=== PATIENT | female | born 1975 | race African-American/Black ===

== ENCOUNTER 2019-04-09 08:59 | Emergency (ER) | payer SELFPAY ==
[~2019-04-09] VITALS: Ht 167.6 cm; Wt 81.2 kg
[2019-04-09 09:14] VITALS: BP 157/93
[2019-04-09] MEDS ORDERED: LIDOCAINE 1% Multi-Dose 20 ML VIAL. INJ ONE (09:15)
[2019-04-09] MEDS ORDERED: CEPH-264 PO (09:20)
--- NOTE | 2019-04-09 09:20 | PHYS DOC ---
Adult General Chief Complaint Chief Complaint: VAGINAL PROBLEM HPI HPI Patient is a 43 year old female who presents with left lower omalley area but STATES that started on Friday. Patient states started out as small pimples-sized and is no ache or in more painful. Patient rates her burning and throbbing pain an 8 out of 10. Review of Systems Review of Systems Constitutional: Denies fever or chills [] Eyes: Denies change in visual acuity, redness, or eye pain [] HENT: Denies nasal congestion or sore throat [] Respiratory: Denies cough or shortness of breath [] Cardiovascular: No additional information not addressed in HPI [] GI: Denies abdominal pain, nausea, vomiting, bloody stools or diarrhea [] : Denies dysuria or hematuria [] Musculoskeletal: Denies back pain or joint pain [] Integument: abscess to lower buttock. Denies rash or skin lesions [] Neurologic: Denies headache, focal weakness or sensory changes [] Endocrine: Denies polyuria or polydipsia [] All other systems were reviewed and found to be within normal limits, except as documented in this note. Current Medications Current Medications Current Medications Medications (Trade) Dose Ordered Sig/Miller Start Time Stop Time Status Last Admin Dose Admin Lidocaine HCl (Lidocaine 1% 20ml Vial) 20 ml 1X ONCE 04/09/19 09:15 04/09/19 09:16 DC Allergies Allergies Allergies Coded Allergies Type Severity Reaction Last Updated Verified No Known Drug Allergies 04/09/19 No Physical Exam Physical Exam Constitutional: Well developed, well nourished, no acute distress, non-toxic appearance. [] HENT: Normocephalic, atraumatic, bilateral external ears normal, oropharynx moist, no oral exudates, nose normal. [] Eyes: PERRLA, EOMI, conjunctiva normal, no discharge. [] Neck: Normal range of motion, no tenderness, supple, no stridor. [] Cardiovascular:Heart rate regular rhythm, no murmur [] Lungs & Thorax: Bilateral breath sounds clear to auscultation [] Abdomen: Bowel sounds normal, soft, no tenderness, no masses, no pulsatile masses. [] Skin: Left lower inner buttock abscess. Red fluctuate center to abscess. Warm, dry, no erythema, no rash. [] Back: No tenderness, no CVA tenderness. [] Extremities: No tenderness, no cyanosis, no clubbing, ROM intact, no edema. [] Neurologic: Alert and oriented X 3, normal motor function, normal sensory function, no focal deficits noted. [] Psychologic: Affect normal, judgement normal, mood normal. [] Current Patient Data Vital Signs Vital Signs Date Time Temp Pulse Resp B/P (MAP) Pulse Ox O2 Delivery O2 Flow Rate FiO2 04/09/19 09:14 98.2 93 18 157/93 (114) 98 Room Air 98.2 EKG EKG [] Radiology/Procedures Radiology/Procedures [] Course & Med Decision Making Course & Med Decision Making Patient is a 43 year old female who presents with left lower omalley area but STATES that started on Friday. Patient states started out as small pimples-sized and is no ache or in more painful. Patient rates her burning and throbbing pain an 8 out of 10. Alert and oriented. Afebrile. Vital signs within normal limits. Patient has a dollar coin-sized abscess with a fluctuant center to left lower inner buttock. There is no associated cellulitis around the abscess. A small amount of thick purulent fluid is drained. Patient is put on Keflex and to follow up with primary care in 48 hours or return here for wound recheck. Patient states she has a appointment with her Primary care scheduled fro April 12 and will follow up with her doctor. Patient is told she must return sooner if she begin running a fever. Abscess Incision and Drainage with irrigation by me: Location: Left lower inner buttock Anesthesia: Local 1% Lidocaine Technique: Irrigated. Disrupted loculations w/ instrumentation Packing: None Complications: Neurovascularly intact post procedure 48 hour wound check. Scar minimization instructions given. ED Ultrasound: Abscess localized by me using concurrent ultrasound guidance and assessment of the anatomy. Real time image archived in the medical record confirms anatomy. [] Dragon Disclaimer Dragon Disclaimer This electronic medical record was generated, in whole or in part, using a voice recognition dictation system. Departure Departure Impression: Primary Impression: Abscess Disposition: 01 HOME, SELF-CARE Condition: STABLE Referrals: UNKNOWN PCP NAME (PCP) Patient Instructions: Abscess, Abscess, Care After Additional Instructions: Take antibiotic and pain medications as prescribed. Return in 48 hours to your doctor or in the ED for wound check. Scripts Hydrocodone/Apap 5-325 (NORCO 5-325 TABLET) 1 Each Tablet 1 TAB PO PRN Q6HRS PRN for PAIN, #10 TAB 0 Refills Prov: PREETI LIN APRN 04/09/19 Cephalexin (KEFLEX) 500 Mg Capsule 1 CAP PO TID, #21 CAP Prov: PREETI LIN APRN 04/09/19 PREETI LIN APRN Apr 09, 2019 09:20
[2019-04-09] MEDS ORDERED: HYDR-3164 PO (09:30)
== END 2019-04-09 09:33 | disposition home or self-care (01) ==
LOC: ER 08:59
DX: L02.31 Cutaneous abscess of buttock (principal)
CPT/HCPCS: 10060; 99283; 99284